=== PATIENT | female | born 1995 | race Caucasian/White ===

== ENCOUNTER 2016-12-10 17:51 | Emergency (ER) | payer BC ==
[2016-12-10 20:13] VITALS: BP 134/90
--- NOTE | 2016-12-10 20:38 | RAD ---
HISTORY: Fall, right knee trauma COMPARISONS: None VIEWS: 4, Frontal, lateral, axial, and oblique views of the right knee FINDINGS: BONE DENSITY: Normal. BONES: There is no displaced fracture. JOINTS: There is no arthropathy. There is no suprapatellar joint effusion or lipohemarthrosis. ALIGNMENT: There is no dislocation. SOFT TISSUES: Unremarkable. OTHER FINDINGS: None. IMPRESSION: NO ACUTE OSSEOUS INJURY. IF SYMPTOMS PERSIST, RECOMMEND REPEAT IMAGING.
--- NOTE | 2016-12-10 20:42 | UC ---
Lower Extremity/Ankle HPI - HPI Summary HPI Summary: patient was doing a flip and landed on her knee bent. pain on medial and lateral side of knee. - History of Current Complaint Chief Complaint: UCLowerExtremity Stated Complaint: RIGHT KNEE INJURY Time Seen by Provider: 12/10/16 20:08 Hx Last Menstrual Period: 11/26/16 - Allergies/Home Medications Allergies/Adverse Reactions: Allergies Allergy/AdvReac Type Severity Reaction Status Date / Time Amoxicillin Allergy Intermediate Rash Verified 12/10/16 20:06 Home Medications: Home Medications Norgestimate-Ethinyl Estradiol [Sprintec 28 0.25-35 mg-Mcg] 1 tab PO DAILY 12/10 [History Confirmed 12/10/16] PMH/Surg Hx/FS Hx/Imm Hx - Surgical History Surgical History: Yes Surgery Procedure, Year, and Place: nose surgery after fx - Social History Alcohol Use: Weekly Substance Use Type: None Smoking Status (MU): Never Smoked Tobacco Review of Systems Constitutional: Negative Skin: Negative Eyes: Negative ENT: Negative Respiratory: Negative Cardiovascular: Negative Gastrointestinal: Negative Genitourinary: Negative Motor: Negative Neurovascular: Negative Musculoskeletal: Arthralgia, Decreased ROM - flx and ext of right knee, Edema Neurological: Negative Psychological: Negative All Other Systems Reviewed And Are Negative: Yes Physical Exam Triage Information Reviewed: Yes Appearance: Well-Appearing, Well-Nourished, Pain Distress Vital Signs: Initial Vital Signs Temp 100.3 F 12/10/16 20:06 Pulse 93 12/10/16 20:06 Resp 16 12/10/16 20:06 BP 134/90 12/10/16 20:06 Pulse Ox 99 12/10/16 20:06 Vital Signs Reviewed: Yes Eye Exam: Normal Eyes: Positive: Conjunctiva Clear ENT Exam: Normal ENT: Positive: Normal ENT inspection, Hearing grossly normal, Pharynx normal, TMs normal Dental Exam: Normal Neck exam: Normal Respiratory Exam: Normal Cardiovascular Exam: Normal Abdominal Exam: Normal Musculoskeletal: Positive: Strength Intact, No Edema - no visible edema, Strength Limited @, ROM Limited @ - flx and ext due to pain, Other: - + daryn along lateral joint line, -varus and valgus stress test. no bruising or deformity. patella is tracing appropriately Neurological Exam: Normal Neurological: Positive: Alert, Muscle Tone Normal Psychological Exam: Normal Skin Exam: Normal Lower Extremity Course/Dx - Course Course Of Treatment: hx obtained, exam performed, xray neg for fracture. - Differential Dx/Diagnosis Differential Diagnosis/HQI/PQRI: Bursitis, Contusion, Fracture (Closed), Sprain , Strain Provider Diagnoses: knee pain Discharge - Discharge Plan Condition: Stable Disposition: HOME Patient Education Materials: Knee Pain (ED), Knee Exercises (GEN) Referrals: Darren Elizabeth MD [Medical Doctor] - Additional Instructions: Rest Ice compress and elevate. COntinue ice for the next day or two, work through pain free ROM, no impact activity until you have full ROM. if symptoms are not improving in the next 2 weeks follow up with the listed orthopedic office.
== END 2016-12-10 20:55 | disposition home or self-care (01) ==
LOC: UCCORT 17:51
DX: M25.561 Pain in right knee (principal); Z88.0 Allergy status to penicillin
CPT/HCPCS: 99201; G0463

== ENCOUNTER 2017-02-09 14:24 | Emergency (ER) | payer BC ==
[2017-02-09] MEDS ORDERED: Ibuprofen TAB* 600 MG PO ONE (15:27)
--- NOTE | 2017-02-09 15:30 | UC ---
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 still is not improving, swollen, cant flex or extend. Medial tenderness - History of Current Complaint Stated Complaint: LEFT ELBOW INJURY Time Seen by Provider: 02/09/17 15:22 Hx Obtained From: Patient Hx Last Menstrual Period: 11/26/16 ?: No Onset/Duration: Days, Traumatic Severity Initially: Severe Severity Currently: Severe Location Of Pain: Is Diffuse - left elbow Character: Aching, Spasmodic, Stiffness Aggravating Factor(s): Movement Alleviating Factor(s): Nothing Associated Signs And Symptoms: Positive: Swelling, Weakness - Allergies/Home Medications Allergies/Adverse Reactions: Allergies Allergy/AdvReac Type Severity Reaction Status Date / Time Amoxicillin Allergy Intermediate Rash Verified 02/09/17 15:39 PMH/Surg Hx/FS Hx/Imm Hx Previously Healthy: Yes - Surgical History Surgical History: Yes Surgery Procedure, Year, and Place: nose surgery after fx - Family History Known Family History: Positive: Hypertension - Social History Alcohol Use: Weekly Substance Use Type: None Smoking Status (MU): Never Smoked Tobacco Review of Systems Constitutional: Negative Skin: Negative Eyes: Negative ENT: Negative Respiratory: Negative Cardiovascular: Negative Gastrointestinal: Negative Genitourinary: Negative Motor: Negative Neurovascular: Negative Musculoskeletal: Arthralgia, Decreased ROM, Edema, Myalgia Neurological: Negative Psychological: Negative All Other Systems Reviewed And Are Negative: Yes Physical Exam Triage Information Reviewed: Yes Appearance: Well-Appearing, Well-Nourished, Pain Distress Vital Signs Reviewed: Yes Eye Exam: Normal Eyes: Positive: Conjunctiva Clear ENT Exam: Normal ENT: Positive: Normal ENT inspection, Hearing grossly normal, Pharynx normal, TMs normal Dental Exam: Normal Neck exam: Normal Neck: Positive: Supple, Nontender, No Lymphadenopathy Respiratory Exam: Normal Respiratory: Positive: Chest non-tender, Lungs clear, Normal breath sounds Cardiovascular Exam: Normal Cardiovascular: Positive: RRR, No Murmur, Pulses Normal Abdominal Exam: Normal Abdomen Description: Positive: Nontender, No Organomegaly, Soft Bowel Sounds: Positive: Present Musculoskeletal: Positive: Strength Limited @ - with left elbow fLX and EXT, supination and pronation are painful, ROM Limited @ - L elbow FLX and EXT, Edema @ - let elbow diffuse joint effusion Neurological Exam: Normal Neurological: Positive: Alert, Muscle Tone Normal Psychological Exam: Normal Skin Exam: Normal Elbow Pain Course/Dx - Course Course Of Treatment: hx obtained, exam performed, meds reviewed, xray obtained, ibuprofen given. - Differential Dx/Diagnosis Differential Diagnosis/HQI/PQRI: Fracture (Closed), Sprain, Strain Provider Diagnoses: Hyperextension of left elbow. MCL sprain left elbow Discharge - Discharge Plan Condition: Stable Disposition: HOME Patient Education Materials: Elbow Sprain (ED) Referrals: Non Staff,Doctor [Primary Care Provider] - Darren Elizabeth MD [Medical Doctor] - Additional Instructions: Use the kaitlin and sling for reduction of swelling and support. Heat the area as tolerated to increase circulation to the area. Keep activities in the pain free zone. Ibuprofen as needed for pain. I have included the name of a orthopedic if you are not continuing to improve
[2017-02-09 15:38] VITALS: BP 141/87
--- NOTE | 2017-02-09 15:54 | RAD ---
INDICATION: Left elbow injury. TECHNIQUE: 4 views of the left elbow were obtained. FINDINGS: The bones are in normal alignment. No joint effusion or fracture is seen. Joint spaces appear maintained. IMPRESSION: NO EVIDENCE FOR FRACTURE.
== END 2017-02-09 16:17 | disposition home or self-care (01) ==
LOC: UCCORT 14:24
DX: S53.492A Other sprain of left elbow, initial encounter (principal); X58.XXXA Exposure to other specified factors, initial encounter; Y93.43 Activity, gymnastics; Y92.9 Unspecified place or not applicable; Z88.1 Allergy status to other antibiotic agents
CPT/HCPCS: 99213; A9270-GY; G0463